=== PATIENT | female | born 2000 | race Caucasian/White ===

== ENCOUNTER 2021-11-20 19:32 | Emergency (ER) | payer BC, SELFPAY ==
[2021-11-20 20:06] VITALS: BP 150/89; PULSE 93; RESP 20; TEMP 37.1; O2SAT 94; BMI 20.1
--- NOTE | 2021-11-20 20:18 | ED_ITS ---
HPI - Psych General Chief Complaint: Psychiatric Symptoms Stated Complaint: Crisis Time Seen by Provider: 11/20/21 20:18 Source: patient Mode of arrival: ambulatory Limitations: no limitations History of Present Illness HPI Narrative: 21-year-old female with no pertinent PMHx presenting with increased depression. The patient reports that for the past 1 year she has been feeling down. She states that this has progressively worsened and now she feels as though she doesn't even want to get out of bed in the morning. She reports that she wants to get help and feel better. She denies any SI or HI. She reports being on antidepressants briefly in the past but is not currently. She denies any hallucinations. She tells me that she frequently smokes marijuana but denies any other drug or alcohol use. She denies any medical complaints at this time including chest pain, shortness of breath, abdominal pain, nausea, vomiting, headache, dizziness. LMP 3 weeks ago. Related Data Allergies Allergy/AdvReac Type Severity Reaction Status Date / Time No Known Allergies Allergy Verified 11/20/21 20:44 Review of Systems Review of Systems: Constitutional : No Weight loss, No Fever, No Chills, No Fatigue, No Malaise ENT/Mouth : No sore throat, No Rhinorrhea Eyes: No Eye Pain, No Swelling, No Redness Cardiovascular : No Chest Pain, No SOB, No Dyspnea on Exertion, No Orthopnea, No Edema, No Palpitations Respiratory : No Cough, No Sputum, No Wheezing Gastrointestinal : No Nausea, No Vomiting, No Diarrhea, No Constipation, No abdominal Pain, No Hematochezia, No Melena Genitourinary : No Dysuria, No Urinary Frequency, No Hematuria, Musculoskeletal : No joint pain, No Myalgias, No Joint Swelling Skin : No Skin Lesions, No rash Neuro : No Weakness, No Numbness, No Dizziness, No Headache Psych : No Anxiety/Panic, + Depression, No SI/HI All other systems reviewed and are negative Yes all other systems are reviewed and are negative [facility] Past Medical History Attestation statement: The following information was validated with the patient. Source: unable to obtain and obtained from family Social History Social History Advance Directives: No Advance Directives Information Provided: Yes Physical Exam Vital Signs: Vital Signs: Last Vital Signs Temp 98.8 F 11/20/21 20:06 Pulse 93 11/20/21 20:06 Resp 20 11/20/21 20:06 BP 150/89 H 11/20/21 20:06 Pulse Ox 94 11/20/21 20:06 O2 Del Method 11/20/21 20:06 BMI result Body Mass Index 20.1 VSS Appearance: Alert.? Oriented X3.? No acute distress.? Head: Normocephalic, atraumatic, no step-offs or deformities Eyes: Pupils equal, round and reactive to light.? Neck: Normal inspection.? Neck supple.? CVS: Normal heart rate and rhythm.? Pulses normal.? Respiratory: No respiratory distress.? Breath sounds normal.? Abdomen: Soft and nontender.? Skin: Skin warm and dry.? Normal skin color.? Normal skin turgor.? Extremities: No lower extremity edema.? No calf ttp. 5/5 strength to bilateral upper and lower extremities Neuro: Oriented X 3.? No motor deficit.? No sensory deficit. CN 2-12 intact Course Reevaluation(s) Reevaluation #1: CBC w/o acute findings. Chemistry with no acute electrolyte abnormalities requiring intervention. COVID negative. Urine, urine toxicology and urine pending however patient without urinary complaints, would not change patient disposition. Time: 21:55 Reevaluation #2: Sylvia from CARE team met with patient diagnosis unspecified depression. Plan is to be dc home patient has a scheduled intake w/ [facility], and she will be set up with partial hospitalization. Denies SI and HI plan is for DC home at this time. Comfortable with dc home. Time: 22:32 MDM - Psych MDM Narrative Medical decision making narrative: 20:25 21 y/o F with no pertinent PMHx of presenting with worsening depression x 1 year. Denies SI, HI, hallucinations, any medical complaints at this time. PE benign. Suspect depressive episode at this time, low suspicion for medical causes. No medical complaints Plan to obtain basic labs, clear medically, and arrange behavioral health consultation. Medical Records Attestation: I reviewed the patient's medical records. Lab Data Attestation: I reviewed the patient's lab results. Result diagrams: 11/20/21 21:38 11/20/21 21:38 Labs: Lab Results 11/20/21 11/20/21 11/20/21 Range/Units 21:02 21:38 21:38 WBC 5.6 (4.8-10.8) X10*3/uL RBC 4.78 (4.20-5.50) X10*6/uL Hgb 12.6 (12.0-16.0) g/dl Hct 38.1 (37.0-47.0) % MCV 79.7 L (80.0-98.0) fL MCH 26.4 L (27.0-33.0) pg MCHC 33.1 (31.0-35.0) g/dl RDW 12.4 (11.0-16.0) % Plt Count 251 (160-400) X10*3/uL MPV 10.0 (9.4-12.3) fL Immature Gran % (Auto) 0.2 (0.0-0.4) % Neut % (Auto) 72.7 (45-73) % Lymph % (Auto) 19.2 L (20-40) % [place] % (Auto) 6.8 (2-11) % Eos % (Auto) 0.4 (0-4) % Baso % (Auto) 0.7 (0-2) % Lymph # (Auto) 1.1 L (1.2-4.9) X10*3/uL [place] # (Auto) 0.4 (0.1-1.2) X10*3/uL Eos # (Auto) 0.0 (0.0-0.4) X10*3/uL Baso # (Auto) 0.0 (0.0-0.2) X10*3/uL Abs Immat Gran (auto) 0.01 (0.00-0.03) X10*3/uL Absolute Neuts (auto) 4.0 (2.0-8.3) x10*3/uL Absolute Nucleated RBC 0.000 (0.0-0.012) X10*3/uL Nucleated RBC % (auto) 0.0 (0.0-0.2) /100WBC Sodium 141 (135-145) mmol/L Potassium 3.8 (3.3-5.1) mmol/L Chloride 106 (96-108) mmol/L Carbon Dioxide 24 (22-29) mmol/L Anion Gap 15 (12-20) BUN 8 L (9-16) mg/dL Creatinine 0.66 (0.5-1.4) mg/dL Estim Creat Clear Calc 107.0 Estimated GFR > 60 Random Glucose 90 (60-115) mg/dL Calcium 9.1 (8.4-10.2) mg/dL Total Bilirubin 0.4 (0.0-1.0) mg/dL AST 17 (5-31) U/L ALT 10 (0-31) U/L Alkaline Phosphatase 65 (39-117) U/L Total Protein 6.8 (6.5-8.0) g/dL Albumin 4.5 (3.5-5.0) g/dL COVID-19 (BRIANNE) Negative (Negative) COVID-19 Clin Com See Note Critical Care Time Critical Care Time Critical Care Time: No Discharge Plan Discharge Clinical Impression: Depression Patient Disposition: Home, Self-Care Instructions: Depression (ED) Additional Instructions: Take your medications as prescribed. If you were prescribed antibiotics today, it is important that you take your medication to their entirety, do not skip any doses, do not finish them early. Follow-up with your primary care provider this week. Return to the emergency department with new or worsening symptoms. Such as fevers, chills, chest pain, shortness of breath, nausea, vomiting, dizziness, headache, vision changes, lethargy, suicidal or homicidal ideation In case of emergency call 911 Your being set up for partial hospitalization, please follow instructions provided by the care team. Referrals: [facility] [Provider Group] - 1 day Physician,Miki J [Primary Care Provider] - 2 days Stand Alone Forms: Work/School Release
[2021-11-20 21:23] LABS: IDNOW Serial# 55D5AD1C
[2021-11-20 21:25] LABS: COVID-19 Test Negative (Negative)
[2021-11-20 21:43] LABS: MANUAL DIFF FLAG NO
[2021-11-20 21:45] LABS: Basophils Percent Auto 0.7 % (0-2); Eosinophils Percent Auto 0.4 % (0-4); Hematocrit 38.1 % (37.0-47.0); Hemoglobin 12.6 g/dl (12.0-16.0); Imm Gran Abs Auto 0.01 X10*3/uL (0.00-0.03); Imm Gran Pct Auto 0.2 % (0.0-0.4); Lymphocytes Absolute Auto 1.1 X10*3/uL (1.2-4.9); Lymphocytes Percent Auto 19.2 % (20-40); Mean Corpuscular HGB Conc 33.1 g/dl (31.0-35.0); Mean Corpuscular Hemoglobin 26.4 pg (27.0-33.0); Mean Corpuscular Volume 79.7 fL (80.0-98.0); Monocytes Absolute Auto 0.4 X10*3/uL (0.1-1.2); Monocytes Percent Auto 6.8 % (2-11); Neutrophils Percent Auto 72.7 % (45-73); Platelet Count 251 X10*3/uL (160-400); Red Blood Count 4.78 X10*6/uL (4.20-5.50); Red Cell Distribution Width 12.4 % (11.0-16.0); White Blood Count 5.6 X10*3/uL (4.8-10.8)
[2021-11-20 22:07] LABS: Alanine Aminotransferase 10 U/L (0-31); Albumin Level 4.5 g/dL (3.5-5.0); Alkaline Phosphatase 65 U/L (39-117); Anion Gap 15 (12-20); Aspartate Amino Transferase 17 U/L (5-31); Bilirubin Total 0.4 mg/dL (0.0-1.0); Blood Urea Nitrogen 8 mg/dL (9-16); Calcium 9.1 mg/dL (8.4-10.2); Carbon Dioxide 24 mmol/L (22-29); Chloride 106 mmol/L (96-108); Estimated Glomerular Filt Rate > 60; Glucose Random 90 mg/dL (60-115); Potassium 3.8 mmol/L (3.3-5.1); Sodium 141 mmol/L (135-145); Total Protein 6.8 g/dL (6.5-8.0)
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
== END 2021-11-20 22:52 | disposition home or self-care (01) ==
PROVIDERS: Physician Assistant; Emergency Provider Emergency Medicine
DX: F32.A Depression, unspecified (principal); F12.90 Cannabis use, unspecified, uncomplicated; Z20.822 Contact with and (suspected) exposure to COVID-19
CPT/HCPCS: 36415; 80053; 85025; 87635; 99282; 99283; 99284

== ENCOUNTER 2021-12-13 08:00 | Outpatient (RCR) | payer BC, SELFPAY ==
[2021-11-23 11:04] VITALS: BMI 20.1
[2021-11-23 12:35] VITALS: BP 118/70; PULSE 80; TEMP 36.3
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
[2021-11-23 13:23] LABS: Amphetamine Screen Urine Not Detected (Not Detect); Barbiturates, Urine Not Detected (Not Detect); Benzodiazepines Screen Urine Not Detected (Not Detect); Cannabinoid Screen Urine POSITIVE (Not Detect); Cocaine Screen Urine Not Detected (Not Detect); Fentanyl, urine Not Detected (Not Detect); Opiate Screen Urine Not Detected (Not Detect); Phencyclidine Screen Urine Not Detected (Not Detect)
--- NOTE | 2021-11-23 14:10 | PC.NURSE ---
Case opened in treatment team.
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
--- NOTE | 2021-11-28 12:25 | HO.PHPIOP ---
I met with pt and reviewed treatment plan and schedule.
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
--- NOTE | 2021-12-06 09:02 | PC.NURSE ---
Patient has a new PCP appointment at [address] with Naila Tapia on March 14, 2022 at 10:00 am. Patient given information about [facility] if needed.
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
--- NOTE | 2021-12-13 14:44 | P.PNPSP_ITS ---
Subjective Subjective Date of Service: 12/13/21 Reason For Visit: MDD Interim History: Continues with depressed mood / affect. Reports not feeling physically well, says tested negative for Covid. Using one hydroxyzine per day. Started the increased dose sertraline 50mg several days ago, tolerating well. No SI/HI, no safety concerns. preoccupied with eating / fear of weight gain. Medication Compliance: Yes Side effects from medications: No Attending Groups: Yes Review of Systems Acute medical concerns: No Medical Review of Systems: unchanged Review of Systems Review of Systems Yes all other systems are reviewed and are negative Constitutional: Reports body ache(s) and Reports fatigue Endocrine: Reports fatigue Mental Status Exam Mental Status Exam Narrative: NAD. Patient Appearance: Well Grooomed and Appropriate Patient Orientation: Person, Place, Time and Situation Level of Consciousness: Appropriate and Alert Patient Behavior: Appropriate, Cooperative and Good Eye Contact Mood Description: Depressed Affect Description: Depressed Patient Cognition Impaired: No Ability to Follow Directions: Good Speech Pattern: Clear, Appropriate and Coherent Memory Description: Intact Hallucinations: None Delusions: Not Present Thought Process: Intact Thought Content: positive for Intact and positive for Preoccupation (focused on weight, concerned she is overweight) Depressive Symptoms: Increased Anxiety, Loss of Int. in Activity and Increased Fatigue Judgement: Fair Diagnostics Vital Signs (24Hr): BMI result Body Mass Index 20.1 Assessment & Plan Assessment & Plan (1) Eating disorder: Status: Acute Code(s): F50.9 - Eating disorder, unspecified Assessment and Plan: Patient preoccupied with weight, asked this provider for a sleep med that also suppresses appetite. Stopped taking mirtazapine in past, due to increased appetite. Continues with restrictive eating pattern. Wants to lose weight, although current BMI 20. Displays little insight regarding eating disorder at this time. (2) Depression, major, severe recurrence: Status: Acute Code(s): F33.2 - Major depressive disorder, recurrent severe without psychotic features Assessment and Plan: Reports mood contines depressed, without much improvement. Starting taking the increased dose of sertraline several days ago. (3) Cannabis dependence, uncomplicated: Status: Acute Code(s): F12.20 - Cannabis dependence, uncomplicated Assessment and Plan: Patient continues to struggle with cannabis use. contemplation stage of change. (4) Post-traumatic stress disorder, unspecified: Status: Acute Code(s): F43.10 - Post-traumatic stress disorder, unspecified Assessment and Plan: continues with poor sleep, did not report nightmares during this visit. Plan 1. Continue with current [facility] plan of care. 2. continue with medications as currently prescribed. 3. patient may benefit from eating disorder treatment program referral. 4. follow-up as per protocol. Patient educated on: diagnosis, medication risk/benefits, substance abuse and therapeutic strategies Informed Consent: understands Reason for contiued partial hosp. stay Substantial Risk for: inability to function and rapid decompensation Certification I certify that partial hospital treatment is medically necessary due to the symptoms and problems resulting from the patient's mental illness and the failure to treat the patient at the partial hospital level of care would likely result in the patient requiring inpatient psychiatric care which could not be prevented at a less intensive level of care. I spent minutes with the patient and/or on the patient floor today, greater than?50% of which was spent counseling/coordinating care. Discharge Plan Discharge Attending provider: Archie Mazariegos Additional Instructions: New PCP appointment at [address] with Naila Tapia on March 14, 2022 at 10:00 am. Medications: New hydroxyzine HCl 25 mg tablet 25 mg PO TID PRN (Reason: anxiety) 14 Days Qty: 42 0RF sertraline 50 mg tablet 50 mg PO DAILY Qty: 30 0RF Stand Alone Forms: Patient Portal Discharge page
== END 2021-12-13 23:59 | disposition home or self-care (01) ==
LOC: HO.PHPA 08:00
PROVIDERS: Nurse Practitioner Psychiatric/Mental Health; Visit Provider Psychiatry & Neurology Psychiatry
DX: F33.2 Major depressive disorder, recurrent severe without psychotic features (principal); F43.10 Post-traumatic stress disorder, unspecified; F50.9 Eating disorder, unspecified; F12.20 Cannabis dependence, uncomplicated; Z79.899 Other long term (current) drug therapy
CPT/HCPCS: 80307; 90792; 90853

== ENCOUNTER 2022-01-31 09:30 | Outpatient (RCR) | payer BC, SELFPAY ==
--- NOTE | 2021-12-27 13:59 | PC.ADMIT ---
Patient is a 21 year old single female was initially admitted to [facility] attending 13 sessions however was no longer able to continue treatment at that time as she was sick with Covid. Patient returned to [facility] today to continue working on her mental health. Patient continues with depression and anxiety and PTSD sxs. Please see Integrative Assessment and previous nursing assessment for more information. When I met with patient she reported decreased energy and feeling tired. She presented with depressed mood and affect, soft spoken and offered little in conversation. She reports feeling, out of it . Poor sleeping pattern reporting falling asleep anywhere from 4-7am and waking in the afternoon up until 4pm. She denied SI or thoughts to harm herself. Reports last time she self harmed was over a month ago. Reports decreased Marijuana use. Patient reports she has not taken her prescription medication for the past 2 weeks d/t being sick. Patient plans on restarting her medication today. Medication education provided. Tips on how to remember to take medications discussed. [ End ]
[2021-12-27 14:00] VITALS: BMI 20.1
[2021-12-27 14:01] VITALS: BP 110/70; PULSE 80; TEMP 35.7
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
--- NOTE | 2021-12-28 15:53 | HO.PHPIOP ---
Case opened in treatment team.
--- NOTE | 2022-01-02 15:55 | P.PNPSP_ITS ---
Subjective Subjective Date of Service: 01/02/22 Reason For Visit: unspecified depressive d/o Medical Problems Affecting Mental Status: No Interim History: Describes mood as ?good, I was depressed this morning but improved now ?. No SI, no safety concerns. Began taking the sertraline 50 mg daily for past 5 days. Has for gotten to take doses here and there. Has been taking hydroxyzine before bed, with positive affect. Indecisive regarding THC/cannabis use, continue use. Interested in finding support group for eating disorder. Medication Compliance: Intermittent Side effects from medications: No Attending Groups: Yes Review of Systems Acute medical concerns: No Medical Review of Systems: unchanged Review of Systems Review of Systems Yes all other systems are reviewed and are negative Constitutional: Reports no additional constitutional complaints Mental Status Exam Mental Status Exam Narrative: NAD. Patient Appearance: Appropriate Patient Orientation: Person, Place, Time and Situation Level of Consciousness: Appropriate Patient Behavior: Appropriate, Cooperative and Good Eye Contact Mood Description: Appropriate and Depressed (states improving) Affect Description: Depressed and Flat Patient Cognition Impaired: No Ability to Follow Directions: Good Speech Pattern: Clear and Appropriate Memory Description: Intact Hallucinations: None Delusions: Not Present Perceptual Disturbances: Depersonalization Thought Process: Intact Thought Content: positive for Intact and positive for Preoccupation (focused on weight, body image, caloric intake) Depressive Symptoms: Sleeping More Than Usual, Loss of Int. in Activity, Isolating-Friends/Family, Increased Fatigue, Low Self Esteem, Loss of Energy and Difficulty Concentrating Judgement: Fair Diagnostics Vital Signs (24Hr): BMI result Body Mass Index 20.1 Assessment & Plan Assessment & Plan (1) Depression, major, severe recurrence: Status: Acute Code(s): F33.2 - Major depressive disorder, recurrent severe without psychotic features Assessment and Plan: Describes mood as ?good, I was depressed this morning but improved now ?. No SI, no safety concerns. Began taking the sertraline 50 mg daily for past 5 days. Has for gotten to take doses here and there. Has been taking hydroxyzine before bed, with positive affect. Indecisive regarding THC/cannabis use. Attending COD group, with active participation. Not sure if she would like to stop or cut down at this time. Interested in finding support group for eating disorder. (2) Eating disorder: Status: Acute Code(s): F50.9 - Eating disorder, unspecified (3) Cannabis dependence, uncomplicated: Status: Acute Code(s): F12.20 - Cannabis dependence, uncomplicated (4) Post-traumatic stress disorder, unspecified: Status: Acute Code(s): F43.10 - Post-traumatic stress disorder, unspecified Plan 1. Continue with current [facility] plan of care. 2. Continue with current medication regimen as prescribed. 3. Consider referral to eating disorders clinic/support group. 4. Follow-up as per protocol. Patient educated on: diagnosis, medication risk/benefits, substance abuse and therapeutic strategies Informed Consent: understands Reason for contiued partial hosp. stay Substantial Risk for: harm to self, inability to function, rapid decompensation and med/psych decompensation Certification I certify that partial hospital treatment is medically necessary due to the symptoms and problems resulting from the patient's mental illness and the failu re to treat the patient at the partial hospital level of care would likely result in the patient requiring inpatient psychiatric care which could not be prevented at a less intensive level of care. I spent minutes with the patient and/or on the patient floor today, greater than?50% of which was spent counseling/coordinating care. Discharge Plan Discharge Attending provider: Archie Mazariegos Medications: No Action hydroxyzine HCl 25 mg tablet 25 mg PO TID PRN (Reason: anxiety) 14 Days Qty: 42 0RF sertraline 50 mg tablet 50 mg PO DAILY Qty: 30 0RF Stand Alone Forms: Patient Portal Discharge page
--- NOTE | 2022-01-05 09:59 | PC.NURSE ---
Patient called and left a message stating she was not feeling well today and will be at the program on Saturday. I called Jeanine and left her a message to call me back to f/u and to talk to her about [facility].
--- NOTE | 2022-01-10 14:53 | P.PNPSP_ITS ---
Subjective Subjective Date of Service: 01/10/22 Reason For Visit: unspecified depressive d/o Medical Problems Affecting Mental Status: No Interim History: Describes mood as ?I am doing good ?. Reports that several days ago she was experiencing increased depression, and stayed in bed for 17 hours. Describes low motivation. Reports feeling fatigued, believes it is due to recently having COVID. No SI, feels safe. Reports intrusive thoughts, obsessive compulsive, over minor things. Has been having more dissociative episodes. Still interested in [place] [facility], plans to go there today to obtain more information. Would like to be started with mood stabilizer. Plans to spend holiday with friends. Medication Compliance: Yes Side effects from medications: No Attending Groups: Yes Review of Systems Acute medical concerns: No Recently had covid. Medical Review of Systems: unchanged Review of Systems Review of Systems Yes all other systems are reviewed and are negative Constitutional: Reports fatigue Endocrine: Reports fatigue Mental Status Exam Mental Status Exam Narrative: NAD. Patient Appearance: Appropriate Patient Orientation: Person, Place, Time and Situation Level of Consciousness: Appropriate Patient Behavior: Appropriate, Cooperative and Good Eye Contact Mood Description: Depressed Affect Description: Depressed and Flat Patient Cognition Impaired: No Ability to Follow Directions: Good Speech Pattern: Clear and Appropriate Memory Description: Intact Hallucinations: None Delusions: Not Present Perceptual Disturbances: Depersonalization Thought Process: Intact Thought Content: positive for Intact, positive for Obsessional Thoughts (intrusive, ocd type, of random things .) and positive for Preoccupation (focused on weight, body image, caloric intake) Depressive Symptoms: Sleeping More Than Usual, Loss of Int. in Activity, Isolating-Friends/Family, Increased Fatigue, Low Self Esteem, Loss of Energy and Difficulty Concentrating Judgement: Fair Diagnostics Vital Signs (24Hr): BMI result Body Mass Index 20.1 Assessment & Plan Assessment & Plan (1) Depression, major, severe recurrence: Status: Acute Code(s): F33.2 - Major depressive disorder, recurrent severe without psychotic features Assessment and Plan: Describes mood as ?I am doing good ?. Reports that several days ago she was experiencing increased depression, and stayed in bed for 17 hours. Describes low motivation. Continues with depression. Reports feeling fatigued, believes it is due to recently having COVID. No SI, feels safe. Reports intrusive thoughts, obsessive compulsive, over minor things. Has been having more dissociative episodes. Still interested in [place] [facility], plans to go there today to obtain more information. It was explained that labs would need to be ordered if she decides to go there once discharged from here. Not really finding sertraline helpful. Discussed increasing dose. Would like to be started with mood stabilizer. Reviewed symptoms of bipolar disorder. Patient does not identify as having any clearly manic episodes, but states that she does feel her mood may be hypomanic at times. Reports that this is often rapid, not lasting more than 1-2 days. Discussed her current symptoms, which appear to present as more depressive. Discussed various medications, including use of atypical antipsychotics in order to help with intrusive thoughts and mood stabilization. Patient interested in starting low-dose Lamictal at this time. Medication was reviewed, including side effects both common and severe, titration schedule, risks and benefits. She is agreeable to start 25 mg x 14 days. Has been taking hydroxyzine as needed, states that she takes it mostly at night. Describes as effective. (2) Post-traumatic stress disorder, unspecified: Status: Acute Code(s): F43.10 - Post-traumatic stress disorder, unspecified (3) Eating disorder: Status: Acute Code(s): F50.9 - Eating disorder, unspecified (4) Cannabis dependence, uncomplicated: Status: Acute Code(s): F12.20 - Cannabis dependence, uncomplicated Assessment and Plan: Has cut down. Does not identify as a concern at this time. Plan 1. Continue with current [facility] plan of care. 2. Start lamotrigine 25 mg daily times 14 days. 3. Continue with other medications as currently prescribed. 4. Follow-up as per protocol. Patient educated on: diagnosis, medication risk/benefits and therapeutic strategies Informed Consent: understands Reason for contiued partial hosp. stay Substantial Risk for: inability to function and rapid decompensation Certification I certify that partial hospital treatment is medically necessary due to the symptoms and problems resulting from the patient's mental illness and the failure to treat the patient at the partial hospital level of care would likely result in the patient requiring inpatient psychiatric care which could not be prevented at a less intensive level of care. I spent minutes with the patient and/or on the patient floor today, greater than?50% of which was spent counseling/coordinating care. Discharge Plan Discharge Attending provider: Archie Mazariegos Additional Instructions: Patient has a New PCP appointment at [facility] Office. [address] [place] [address]. [address] Office # [phone]. Medications: New lamotrigine 25 mg tablet 25 mg PO DAILY 14 Days Qty: 14 0RF No Action hydroxyzine HCl 25 mg tablet 25 mg PO TID PRN (Reason: anxiety) 14 Days Qty: 42 0RF sertraline 50 mg tablet 50 mg PO DAILY Qty: 30 0RF Stand Alone Forms: Patient Portal Discharge page
--- NOTE | 2022-01-15 14:05 | HO.PHPIOP ---
After several attempts at calling [facility], I spoke to Brendan (bilingual medical receptionist) in the [place] location. ([phone]- I pressed prompt 2 for the corporate office and then hit the prompt for [place]. Calling the [employer] number- [phone]- did not work- call ended after a long time of ringing). Brendan took demographic information and said she would give this to the admissions team now. I had also sent several emails requesting a call for a referral online.
--- NOTE | 2022-01-15 14:20 | HO.PHPIOP ---
I received a call back from Archie at [facility] shortly after speaking with Brendan. Archie was presumably calling in response to an email I sent. She said pt would have to call herself- that I am not able to put in the referral or obtain an intake time for the client. She said there is currently no wait for the eating disorder IOP, and they can get pt in soon after she calls. I expressed concern about not being able to reach a person when I call (rings for minutes/hours then hangs up), and she said the client should call in the early am or in the evening- they are open until 10pm. I then called pt and spoke to her about this. She agreed to call today in the evening. She also said she would like more time in [facility], as she is still depressed and doesn't feel ready for discharge. Tomorrow was her scheduled discharge date. I agreed to ask for more time from [facility] tomorrow.
--- NOTE | 2022-01-18 15:49 | HO.PHPPROGNO ---
Subjective Subjective Date of Service: 01/18/22 Reason For Visit: unspecified depressive d/o Medical Problems Affecting Mental Status: No Interim History: Describes mood as steady . Less depressed. Fatigued. Continues with anxiety. Asking for increase in hydroxyzine dose. No SI/HI, no safety concerns. Some burning feeling in stomach after taking lamotrigine on empty stomach. Had been using increased cannabis lately, reports has cut down again. Continues with decreased eating. Medication Compliance: Yes Side effects from medications: Yes (GI upset with lamotrigine) Attending Groups: Yes Review of Systems Acute medical concerns: No Medical Review of Systems: unchanged Review of Systems Review of Systems Yes all other systems are reviewed and are negative Gastrointestinal: Reports nausea (after taking med on empty stomach) Mental Status Exam Mental Status Exam Narrative: NAD. Patient Appearance: Appropriate Patient Orientation: Person, Place, Time and Situation Level of Consciousness: Appropriate Patient Behavior: Appropriate, Cooperative and Good Eye Contact Mood Description: Anxious Affect Description: Appropriate and Flat Patient Cognition Impaired: No Ability to Follow Directions: Excellent Speech Pattern: Clear and Appropriate Memory Description: Intact Hallucinations: None Delusions: Not Present Perceptual Disturbances: Depersonalization Thought Process: Intact Thought Content: positive for Intact and positive for Preoccupation (focused on weight, body image, caloric intake) Depressive Symptoms: Sleeping More Than Usual, Isolating-Friends/Family, Increased Fatigue, Low Self Esteem, Loss of Energy and Difficulty Concentrating Judgement: Fair Diagnostics Vital Signs (24Hr): BMI result Body Mass Index 20.1 Assessment & Plan Assessment & Plan (1) Eating disorder: Status: Acute Code(s): F50.9 - Eating disorder, unspecified Assessment and Plan: Describes mood as steady . Less depressed. Continues with some depression, not finding sertraline 50 mg helpful yet. Discussed increasing dose to 75 mg daily. She was in agreement. Fatigued. Patient unsure if this is related to depression anxiety, or recovery process from COVID. Continues with anxiety. Asking for increase in hydroxyzine dose. Reports that the medication is helpful, but continues with significant anxiety, would like to try a higher dose. No SI/HI, no safety concerns. Some burning feeling in stomach after taking lamotrigine on empty stomach. Reviewed side effects of lamotrigine with patient, both minor and severe. Discussed trying the medication with food, she was in agreement with this plan. Had been using increased cannabis lately, reports has cut down again. Continues with decreased eating. Continues to work toward calling [place] for eating disorder program. (2) Depression, major, severe recurrence: Status: Acute Code(s): F33.2 - Major depressive disorder, recurrent severe without psychotic features (3) Cannabis dependence, uncomplicated: Status: Acute Code(s): F12.20 - Cannabis dependence, uncomplicated (4) Post-traumatic stress disorder, unspecified: Status: Acute Code(s): F43.10 - Post-traumatic stress disorder, unspecified Plan 1. Continue with current [facility] plan of care. 2. Increase hydroxyzine to 50 mg t.i.d. p.r.n.. 3. Increase sertraline to 75 mg daily. 4. Follow-up as per protocol. Patient educated on: diagnosis, medication risk/benefits, substance abuse and therapeutic strategies Informed Consent: understands Reason for contiued partial hosp. stay Substantial Risk for: inability to function and med/psych decompensation Certification I certify that partial hospital treatment is medically necessary due to the symptoms and problems resulting from the patient's mental illness and the failure to treat the patient at the partial hospital level of care would likely result in the patient requiring inpatient psychiatric care which could not be prevented at a less intensive level of care. I spent minutes with the patient and/or on the patient floor today, greater than?50% of which was spent counseling/coordinating care. Discharge Plan Discharge Attending provider: Archie Mazariegos Additional Instructions: Patient has a New PCP appointment at [facility] Office. [address] [place] [address]. [address] Office # [phone]. Medications: New lamotrigine 25 mg tablet 25 mg PO DAILY 14 Days Qty: 14 0RF hydroxyzine HCl 50 mg tablet 50 mg PO TID PRN (Reason: anxiety) Qty: 90 0RF sertraline 50 mg tablet 75 mg PO DAILY 30 Days Qty: 45 0RF Discontinued hydroxyzine HCl 25 mg tablet 25 mg PO TID PRN (Reason: anxiety) 14 Days Qty: 42 0RF sertraline 50 mg tablet 50 mg PO DAILY Qty: 30 0RF Stand Alone Forms: Patient Portal Discharge page
--- NOTE | 2022-01-25 13:13 | HO.PHPPROGNO ---
Subjective Subjective Date of Service: 01/25/22 Reason For Visit: unspecified depressive d/o Medical Problems Affecting Mental Status: No Interim History: Continues with depressed mood, some small improvement. Overall feels mood is becoming more stable, less ups and downs . Finding groups helpful. No SI, no safety concerns. Tolerating medications well. Decreased cannabis intake. Reports she is eating more, food intake is more stable. No concerns with sleep. Medication Compliance: Yes Side effects from medications: No Attending Groups: Yes Review of Systems Medical Review of Systems: unchanged Review of Systems Review of Systems Yes all other systems are reviewed and are negative Constitutional: Reports no additional constitutional complaints Mental Status Exam Mental Status Exam Narrative: NAD. Patient Appearance: Appropriate Patient Orientation: Person, Place, Time and Situation Level of Consciousness: Appropriate Patient Behavior: Appropriate, Cooperative and Good Eye Contact Mood Description: Depressed Affect Description: Appropriate, Depressed (Less depressed) and Anxious (Less anxious) Patient Cognition Impaired: No Ability to Follow Directions: Excellent Speech Pattern: Clear and Appropriate Memory Description: Intact Hallucinations: None Delusions: Not Present Perceptual Disturbances: Depersonalization Thought Process: Intact Thought Content: positive for Intact and positive for Preoccupation (focused on weight, body image, caloric intake) Depressive Symptoms: Sleeping More Than Usual, Increased Fatigue, Low Self Esteem and Difficulty Concentrating Judgement: Fair Diagnostics Vital Signs (24Hr): BMI result Body Mass Index 20.1 Assessment & Plan Assessment & Plan (1) Depression, major, severe recurrence: Status: Acute Code(s): F33.2 - Major depressive disorder, recurrent severe without psychotic features Assessment and Plan: Continues with depressed mood, some small improvement. Overall feels mood is becoming more stable, less ups and downs . Finding groups helpful. No SI, no safety concerns. Tolerating medications well. (2) Post-traumatic stress disorder, unspecified: Status: Acute Code(s): F43.10 - Post-traumatic stress disorder, unspecified (3) Cannabis dependence, uncomplicated: Status: Acute Code(s): F12.20 - Cannabis dependence, uncomplicated Assessment and Plan: Decreased cannabis intake, states half of daily use when compared to starting PHP. (4) Eating disorder: Status: Acute Code(s): F50.9 - Eating disorder, unspecified Assessment and Plan: Has been more conscious of food intake, trying to eat, states that her eating pattern is more stable. Plan 1. Continue with current [facility] plan of care. 2. Continue with lamotrigine titration. 50 mg daily times 14 days ordered, then followed by 100 mg daily therafter. Scripts sent. 3. Follow-up as per protocol. Patient educated on: diagnosis, medication risk/benefits, substance abuse and therapeutic strategies Reason for contiued partial hosp. stay Substantial Risk for: inability to function Certification I certify that partial hospital treatment is medically necessary due to the symptoms and problems resulting from the patient's mental illness and the failure to treat the patient at the partial hospital level of care would likely result in the patient requiring inpatient psychiatric care which could not be prevented at a less intensive level of care. I spent minutes with the patient and/or on the patient floor today, greater than?50% of which was spent counseling/coordinating care. Discharge Plan Discharge Attending provider: Archie Mazariegos Additional Instructions: Patient has a New PCP appointment at [facility] Office. [address] [place] [address]. [address] Office # [phone]. Medications: New hydroxyzine HCl 50 mg tablet 50 mg PO TID PRN (Reason: anxiety) Qty: 90 0RF sertraline 50 mg tablet 75 mg PO DAILY 30 Days Qty: 45 0RF lamotrigine 25 mg tablet 50 mg PO DAILY 14 Days Qty: 28 0RF lamotrigine 100 mg tablet 100 mg PO DAILY Qty: 30 0RF Rx Instructions: After completion of lamotrigine 50mg daily for 14 days, Start lamotrigine 100mg daily. Discontinued hydroxyzine HCl 25 mg tablet 25 mg PO TID PRN (Reason: anxiety) 14 Days Qty: 42 0RF sertraline 50 mg tablet 50 mg PO DAILY Qty: 30 0RF Stand Alone Forms: Patient Portal Discharge page
--- NOTE | 2022-01-26 09:08 | PC.NURSE ---
Patient called out today stating she is not feeling well. Reports being safe and plans on returning on Saturday(as she is not scheduled on Saturday' )which will be her last day in the program.
--- NOTE | 2022-01-30 15:02 | P.PNPSP_ITS ---
Subjective Subjective Date of Service: 01/30/22 Reason For Visit: unspecified depressive d/o Medical Problems Affecting Mental Status: No Interim History: Describes mood as ?pretty good ?. States she is not depressed, but she is tired. Reports she felt ?manic ?yesterday, spent 8 hours cleaning her house. Denies SI/HI. Slept 6 hours last night, reports eating but less than normal. Still undecided if she wants to go to [place] after d/c from here. Taking medications as prescribed. Finding Lamictal helpful. Feels stable for discharge from [facility] at this time, but will miss the structure. Medication Compliance: Yes Side effects from medications: No Attending Groups: Yes Review of Systems Acute medical concerns: No Medical Review of Systems: unchanged Review of Systems Review of Systems Yes all other systems are reviewed and are negative Constitutional: Reports no additional constitutional complaints Mental Status Exam Mental Status Exam Narrative: NAD. Patient Appearance: Appropriate Patient Orientation: Person, Place, Time and Situation Level of Consciousness: Appropriate Patient Behavior: Appropriate, Cooperative and Good Eye Contact Mood Description: Appropriate Affect Description: Appropriate Patient Cognition Impaired: No Ability to Follow Directions: Excellent Speech Pattern: Clear and Appropriate Memory Description: Intact Hallucinations: None Delusions: Not Present Perceptual Disturbances: Depersonalization Thought Process: Intact Thought Content: positive for Intact Depressive Symptoms: Increased Fatigue Judgement: Good Diagnostics Vital Signs (24Hr): BMI result Body Mass Index 20.1 Assessment & Plan Assessment & Plan (1) Depression, major, severe recurrence: Status: Acute Code(s): F33.2 - Major depressive disorder, recurrent severe without psychotic features Assessment and Plan: Reports does not feel depressed at this time, but is tired. States that she felt ?manic ?yesterday, and cleaned her whole house for 8 hours. Denies any symptoms of sonja today. States that she will miss structure of program. Still undecided as to whether not she will go to [place] for eating disorder. Reports that she is eating, just states less intake. Denies any SI/HI, no AV/VH, reports that she feels safe. No safety concerns at this time. Discussed Lamictal schedule. She is finding the medication helpful. No other concerns at this time. (2) Post-traumatic stress disorder, unspecified: Status: Acute Code(s): F43.10 - Post-traumatic stress disorder, unspecified (3) Eating disorder: Status: Acute Code(s): F50.9 - Eating disorder, unspecified Plan 1. Patient appears stable for discharge from [facility] at this time. 2. Follow-up with outpatient providers going forward. Patient educated on: diagnosis, medication risk/benefits and therapeutic strategies Reason for contiued partial hosp. stay Substantial Risk for: stable for discharge Certification I certify that partial hospital treatment is medically necessary due to the symptoms and problems resulting from the patient's mental illness and the failure to treat the patient at the partial hospital level of care would likely result in the patient requiring inpatient psychiatric care which could not be prevented at a less intensive level of care. Total time managing care of this patient today ___20_ minutes. Discharge Plan Discharge Attending provider: Archie Mazariegos Additional Instructions: Patient has a New PCP appointment at [facility]. [address] [place] [address]. [address]. Office # [phone]. Medications: New hydroxyzine HCl 50 mg tablet 50 mg PO TID PRN (Reason: anxiety) Qty: 90 0RF sertraline 50 mg tablet 75 mg PO DAILY 30 Days Qty: 45 0RF lamotrigine 25 mg tablet 50 mg PO DAILY 14 Days Qty: 28 0RF lamotrigine 100 mg tablet 100 mg PO DAILY Qty: 30 0RF Rx Instructions: After completion of lamotrigine 50mg daily for 14 days, Start lamotrigine 100mg daily. Discontinued hydroxyzine HCl 25 mg tablet 25 mg PO TID PRN (Reason: anxiety) 14 Days Qty: 42 0RF sertraline 50 mg tablet 50 mg PO DAILY Qty: 30 0RF Stand Alone Forms: Patient Portal Discharge page Patient Education: Depression (DC), Post Traumatic Stress Disorder (DC), Cannabis Abuse (DC)
== END 2022-01-31 23:59 | disposition home or self-care (01) ==
LOC: HO.PHPA 09:30
PROVIDERS: Visit Provider Psychiatry & Neurology Psychiatry
DX: F33.2 Major depressive disorder, recurrent severe without psychotic features (principal); F43.10 Post-traumatic stress disorder, unspecified; F50.9 Eating disorder, unspecified; F12.20 Cannabis dependence, uncomplicated; Z79.899 Other long term (current) drug therapy
CPT/HCPCS: 90853